=== PATIENT | female | born 1970 | race Two or more races ===

== ENCOUNTER → 2024-07-19 09:12 | Outpatient (REF) | payer BC, SELFPAY | LOC: WDC 09:12 | PROVIDERS: ATTENDING PHYSICIAN Physician Assistant; FAMILY PHYSICIAN Family Medicine | DX: N63.11 Unspecified lump in the right breast, upper outer quadrant (principal) | CPT/HCPCS: 76642; 77062; 77066 ==

== ENCOUNTER → 2024-07-22 08:07 | Outpatient (REF) | payer BC, SELFPAY ==
--- NOTE | 2024-07-22 14:03 | OID.BR.INTR ---
[facility] Breast Navigator - Initial
- -
Date of Contact: 07/22/24
Met with patient. Patient given written information on navigator services available at [facility]. Will follow up as needed per protocol.
== END ==
LOC: WDC 08:07
PROVIDERS: ATTENDING PHYSICIAN Physician Assistant; FAMILY PHYSICIAN Family Medicine
DX: N63.11 Unspecified lump in the right breast, upper outer quadrant (principal)
CPT/HCPCS: 88305; 19083; 19084; 88341; 88342; 88360; A4648

== ENCOUNTER → 2024-08-06 13:42 | Outpatient (REF) | payer BC, SELFPAY | LOC: WDC 13:42 | PROVIDERS: ATTENDING PHYSICIAN Surgery | DX: R92.2 Inconclusive mammogram (principal); C50.411 Malignant neoplasm of upper-outer quadrant of right female breast | CPT/HCPCS: 76641 ==

== ENCOUNTER → 2024-08-19 08:46 | Outpatient (REF) | payer BC, SELFPAY | LOC: WDC 08:46 | PROVIDERS: ATTENDING PHYSICIAN Surgery | DX: C50.411 Malignant neoplasm of upper-outer quadrant of right female breast (principal) | CPT/HCPCS: 19285; 38792; 76942; A4648; A9541 ==

== ENCOUNTER 2024-08-20 06:33 | Day surgery (SDC) | payer BC, SELFPAY ==
[2024-08-11 11:14] LABS: Hematocrit 38.9 % (37.0-47.0); Mean Corp Hgb Conc. 33.4 g/dL (33.0-37.0); Mean Corpuscular Volume 89.6 fL (81.0-99.0); Mean Platelet Volume 9.3 fL (7.4-10.4); Platelet Count 268 10^3/uL (130-400); Red Blood Cell Count 4.34 10^6/uL (4.20-5.40); Red Cell Dist. Width 13.3 % (11.5-14.5); White Blood Cell Count 7.6 10^3/uL (4.8-10.8)
[2024-08-11 12:00] LABS: ALT (SGPT) 64 U/L (0-35); AST (SGOT) 52 U/L (14-36); Albumin 4.3 g/dl (3.5-5.0); Alkaline Phosphatase 77 U/L (38-126); Blood Urea Nitrogen 12 mg/dl (7-17); Calcium 9.4 mg/dl (8.4-10.2); Carbon Dioxide 28 mmol/L (22-30); Chloride 102 mmol/L (98-107); Glucose 85 mg/dl (70-99); Potassium 4.7 mmol/L (3.5-5.1); Sodium 140 mmol/L (135-145); Total Bilirubin 0.4 mg/dl (0.2-1.3); Total Protein 7.2 g/dl (6.3-8.2); eGFR > 60.00
[2024-08-11 13:17] LABS: Prealbumin (Transthyretin) 30.9 mg/dl (17.6-36.0)
[2024-08-11 13:21] LABS: Vitamin D, 25-OH*** 22.8 ng/mL (30-80)
[2024-08-11 14:09] VITALS: BMI 35.0
[2024-08-20] VITALS (8 sets, daily range): BP systolic 104–148; BP diastolic 64–85; BMI 35.0
[2024-08-20] MEDS: LOVENOX 40 MG SC (10:36)
[2024-08-20] MEDS: TYLENOL 1000 MG PO (10:37)
[2024-08-20] MEDS: NORMOSOL-R/PLASMALYTE-A 1000 IV (10:37)
--- NOTE | 2024-08-20 12:52 | W.IMMPOSTOP ---
Surgical Immed Post Op Note
-
Primary Surgeon: Blanca
Assisting Surgeon: None
Pre-op Diagnosis: right breast ca
Post-op Diagnosis: right breast ca
Procedure Performed: right localized lumpectomy, sentinel node mapping and biopsy
Anesthesia Type: LMA with TIVA
Specimen / Cultures: right lumpectomy, margins, sentinel nodes
Estimated Blood Loss: 6cc
Complications: None
Operative Findings: Neg nodes, clip and reflector retrieved
--- NOTE | 2024-08-20 12:54 | OR.RPT ---
Operative Report
Operative Report
Pre-Op DX: Right breast ca
Post-Op DX: Right breast ca
Procedure: Right localized lumpectomy, sentinel node mapping and biopsy
Surgeon: Blanca
The patient is a 54-year-old female with image detected right breast carcinoma who presents for breast conservation surgery. On the day prior to the procedure the patient presented to the breast imaging center where she had a Tete garden consultant reflector
placed at the tumor site and underwent technetium radiotracer injection into the breast parenchyma. On the day of surgery she presented to the same-day surgery unit and prepped. DVT and antibiotic prophylaxis were provided. She was taken to the
operating room and in the supine position LMA anesthesia with TIVA was induced. Right breast was prepped and draped in the usual sterile fashion and an appropriate timeout procedure was performed by all staff. Tissues were anesthetized with 1%
lidocaine plain.
Attention was first turned to the axilla where a curvilinear incision was made inferior to the hairline overlying the area of highest external gamma count. Dissection was carried through clavipectoral fascia using the cautery and 2 sentinel node
packets were encountered and removed. Feeding vessels to the nodes were tied with 3-0 silk. Hemostasis was maintained with the cautery or 3-0 silk ties. A small portion of Surgicel was henderson placed in the resection bed and Marcaine 25% plain was
instilled into all tissues. The wound was closed using simple interrupted 3-0 plain in multiple layers deep intermediate and subcutaneous and skin was closed with a running subcuticular 4-0 Monocryl. Next attention was turned to the lumpectomy
where a curvilinear incision was made overlying the area of highest Tete signal. Skin flaps were elevated and a wide lumpectomy was performed. The clip and reflector were dislodged from the specimen and were sent under separate cover and were
verified to be present. Additional margins were harvested for permanent analysis from the posterior, medial, superior, lateral, inferior, and anterior dimensions. These were oriented and sent as well. Hemostasis was verified. Hemoclips were
placed in the resection cavity and Marcaine 0.5% plain was applied. This wound was closed in the same manner as the axillary incision. Surgical glue and sterile compressive dressings were applied.
All sponge needle and instrument counts were correct and the patient was transferred to the recovery room in stable condition.
([id number])
Myton Node Bx Breast Cancer
Myton Node Bx Breast Cancer
Operation performed with curative intent: Yes
Tracer(s) to ID Myton Nodes in Non-Neoadjuvant setting: Radioactive Tracer
Tracer(s) to ID Sentinal Nodes in the Neoadjuvant Setting: N/A
All nodes at end of dye-filled Lymphatic Channel removed: N/A
All Significantly Radioactive Nodes were removed: Yes
All Palpably Suspicious Nodes were Removed: Yes
Bx Proven Pos Nodes Marked Prior to Chemo ID'd & Removed: N/A
== END 2024-08-20 14:20 | disposition home or self-care (01) ==
LOC: SDS 06:33
PROVIDERS: ATTENDING PHYSICIAN Surgery; FAMILY PHYSICIAN Family Medicine
DX: C50.911 Malignant neoplasm of unspecified site of right female breast (principal); N60.91 Unspecified benign mammary dysplasia of right breast
CPT/HCPCS: 38525; 19301; 88305; 88307; 88332; 36415; 76098; 80053; 82306; 84134; 85027; 88331; 88341; 88342; 93005; A4648

== ENCOUNTER → 2024-11-02 14:02 | Outpatient (REF) | payer BC, SELFPAY | LOC: RAD 14:02 | PROVIDERS: ATTENDING PHYSICIAN Internal Medicine Hematology & Oncology; FAMILY PHYSICIAN Family Medicine | DX: C50.411 Malignant neoplasm of upper-outer quadrant of right female breast (principal); Z78.0 Asymptomatic menopausal state; R53.83 Other fatigue | CPT/HCPCS: 77080 ==

== ENCOUNTER → 2025-01-25 13:02 | Outpatient (REF) | payer BC, SELFPAY | LOC: WDC 13:02 | PROVIDERS: ATTENDING PHYSICIAN Family Medicine Geriatric Medicine; FAMILY PHYSICIAN Physician Assistant | DX: Z12.39 Encounter for other screening for malignant neoplasm of breast (principal); R92.343 Mammographic extreme density, bilateral breasts; Z85.3 Personal history of malignant neoplasm of breast; Z12.31 Encounter for screening mammogram for malignant neoplasm of breast | CPT/HCPCS: 77063; 77067 ==

== ENCOUNTER → 2025-05-27 14:50 | Outpatient (REF) | payer BC, SELFPAY | LOC: WDC 14:50 | PROVIDERS: ATTENDING PHYSICIAN Family Medicine Geriatric Medicine; FAMILY PHYSICIAN Physician Assistant | DX: R92.343 Mammographic extreme density, bilateral breasts (principal) | CPT/HCPCS: 76641 ==

== ENCOUNTER 2025-07-01 06:59 | Outpatient (RCR) | payer BC, SELFPAY | END 2025-07-01 23:59 | disposition home or self-care (01) | LOC: RPT 06:59 | PROVIDERS: ATTENDING PHYSICIAN Family Medicine Geriatric Medicine | DX: C50.411 Malignant neoplasm of upper-outer quadrant of right female breast (principal); M62.81 Muscle weakness (generalized); L90.5 Scar conditions and fibrosis of skin; Z79.811 Long term (current) use of aromatase inhibitors; M96.2 Postradiation kyphosis; Z92.3 Personal history of irradiation | CPT/HCPCS: 97110; 97140; 97162; 97530 ==

== ENCOUNTER 2025-08-01 09:50 | Outpatient (RCR) | payer BC, SELFPAY | END 2025-08-01 23:59 | disposition home or self-care (01) | LOC: RPT 09:50 | PROVIDERS: ATTENDING PHYSICIAN Family Medicine Geriatric Medicine | DX: C50.411 Malignant neoplasm of upper-outer quadrant of right female breast (principal); M62.81 Muscle weakness (generalized); L90.5 Scar conditions and fibrosis of skin; Z79.811 Long term (current) use of aromatase inhibitors; M96.2 Postradiation kyphosis; Z92.3 Personal history of irradiation | CPT/HCPCS: 97110; 97112; 97140; 97530 ==